=== PATIENT | female | born 1980 | race Caucasian/White ===

== ENCOUNTER 2018-06-30 05:28 | Day surgery (SDC) | payer MEDICAID ==
[2018-06-30 06:56] LABS: ADD MAN DIFF? NO
[2018-06-30 06:57] LABS: BASOPHILS % 0.3 % (0.0-2.0); EOSINOPHILS # 0.2 10^3/ul (0.0-0.5); EOSINOPHILS % 2.4 % (0.0-7.0); HEMATOCRIT 32.6 % (37.0-47.0); LYMPHOCYTES # 1.7 10^3/ul (0.8-2.9); LYMPHOCYTES % 22.6 % (15.0-51.0); MEAN CORPUSCULAR HEMOGLOBIN 28.9 pg (29.0-33.0); MEAN CORPUSCULAR HGB CONC 33.7 g/dl (32.0-37.0); MEAN CORPUSCULAR VOLUME 85.8 fl (82.0-101.0); MEAN PLATELET VOLUME 11.9 fl (7.4-10.4); MONOCYTE # 0.4 10^3/ul (0.3-0.9); MONOCYTES % 5.6 % (0.0-11.0); NEUTROPHIL # 5.1 10^3/ul (1.6-7.5); NEUTROPHILS % 68.7 % (39.0-77.0); PLATELET COUNT 219 10^3/UL (140-415); RED CELL DISTRIBUTION WIDTH 13.2 % (11.5-14.5)
[2018-06-30 06:57] LABS: WHITE BLOOD COUNT 7.4 10^3/ul (4.8-10.8)
[2018-06-30] MEDS ORDERED: CEFAZOLIN 1 GM INJ (07:00)
[2018-06-30] MEDS ORDERED: LIDOCAINE 100 MG SYRINGE (07:25)
[2018-06-30] MEDS ORDERED: PROPOFOL 100 ML (07:25)
[2018-06-30] MEDS ORDERED: SUCCINYLCHOLINE CHLORIDE 100 MG/5 ML SYG IV (07:25)
[2018-06-30] MEDS ORDERED: FENTAnyl 50 MCG/ML VIAL (07:26)
[2018-06-30] MEDS ORDERED: ONDANSETRON 4 MG INJ (07:26)
[2018-06-30] MEDS ORDERED: DEXAMETHASONE 4 MG/ML 1 ML INJ (07:26)
[2018-06-30] MEDS ORDERED: MIDAZOLAM 1 MG/ML 2 ML INJ (07:26)
[2018-06-30] MEDS ORDERED: MEPERIDINE 25 MG INJ IV (08:00)
[2018-06-30] MEDS ORDERED: FENTAnyl 50 MCG/ML VIAL IV ×2 (08:00)
[2018-06-30] MEDS ORDERED: ONDANSETRON 4 MG INJ IV (08:00)
[2018-06-30] MEDS ORDERED: hydrALAzine 20 MG INJ IV (08:00)
[2018-06-30] MEDS ORDERED: HYDROmorphONE 1 MG/5 ML IV SYRINGE IV ×2 (08:00)
[2018-06-30] MEDS ORDERED: METOCLOPRAMIDE 10 MG INJ IV (08:00)
[2018-06-30] MEDS ORDERED: LABETALOL HCL 20MG INJ IV (08:00)
[2018-06-30] MEDS ORDERED: METHYLERGONOVINE 0.2 MG INJ (08:05)
== END 2018-06-30 09:42 | disposition home or self-care (01) ==
LOC: SDS 05:28
DX: O02.1 Missed abortion (principal)
CPT/HCPCS: 59820; 85025; 86900; 86901; 88305